=== PATIENT | male | born 1960 | race African-American/Black ===

== ENCOUNTER 2019-07-10 05:30 | Inpatient (IN) | payer BC ==
[2019-07-05 13:49] LABS: HEMATOCRIT 42.8 % (42.0-52.0); HEMOGLOBIN 14.2 gm/dL (14.0-18.0); MCH 29.2 pg (26.0-34.0); MCHC 33.1 g/dL (28.0-37.0); MCV 88.2 fL (80.0-100.0); RBC 4.86 mil/uL (4.50-6.00); RDW 15.2 % (10.5-14.5); WBC 5.5 thou/uL (4.0-11.0)
[2019-07-05 13:51] LABS: URINE BILIRUBIN NEGATIVE (Negative); URINE BLOOD TRACE (Negative); URINE CLARITY CLEAR; URINE COLOR YELLOW; URINE GLUCOSE-RANDOM* NEGATIVE (Negative); URINE KETONES NEGATIVE (Negative); URINE LEUKOCYTES-REFLEX NEGATIVE (Negative); URINE NITRITE-REFLEX NEGATIVE (Negative); URINE PROTEIN (DIPSTICK) NEGATIVE (Negative); URINE SPECIFIC GRAVITY 1.015 (1.005-1.035); URINE UROBILINOGEN 0.2 E.U./dl (0.2-1.0)
[2019-07-05 13:58] LABS: ALBUMIN 3.4 g/dL (3.4-5.0); CALCIUM 9.4 mg/dL (8.5-10.1); CREATININE 1.1 mg/dL (0.7-1.3); POTASSIUM 4.1 mmol/L (3.5-5.1)
[2019-07-05 14:02] LABS: PROTIME 10.2 Seconds (9.3-11.4)
[~2019-07-10] VITALS: Ht 177.8 cm; Wt 128.8 kg
[~2019-07-10 05:30] MED LIST: COCONUT OIL1000 MG PO; COZAAR 25 MG TA25 M2 PO; GRAPE SEED50 MG PO; HYDROCHLOROTH12.5 M1 PO; MOBIC15 MG PO
[2019-07-10 14:00] VITALS: BP 148/84
[2019-07-10 15:00] VITALS: BP 172/95
[2019-07-10 15:30] VITALS: BP 178/103
[2019-07-10 16:00] VITALS: BP 181/100
--- NOTE | 2019-07-10 18:59 | NUR ---
RECEIVED PT APPROX 1400. A/O. C/O PAIN MANAGED BY MEDS ORDERED. NO NOTED SOA. DENIES NV. KAYLYNN DRESSING CDI. BP ELVATED- HYRADALAZINE GIVEN ORDERED. HEMOVAC INTACT NOTED SANGUINOUS DRAIN- 525. PAGED DR. REID- WAITING FOR CALL BACK. WILL CONT. TO MONITOR.
[2019-07-10 19:37] VITALS: BP 133/75
[2019-07-11 04:25] VITALS: BP 143/67
--- NOTE | 2019-07-11 04:44 | NUR ---
R KNEE WITH HEMOVAC PATENT. BLOODY OUTPUT, REDUCING. PAIN CONTROLLED BY ORAL MEDS, AFEBRILE.USES URINAL. IVF INFUSING.ICE KIMI APPLIED TO R KNEE. TEDS IN PLACE.NO FURTHER COMPLAINS.
[2019-07-11 06:07] LABS: HEMATOCRIT 32.7 % (42.0-52.0); HEMOGLOBIN 10.8 gm/dL (14.0-18.0); MCH 29.5 pg (26.0-34.0); MCHC 33.1 g/dL (28.0-37.0); RBC 3.67 mil/uL (4.50-6.00); WBC 10.4 thou/uL (4.0-11.0)
--- NOTE | 2019-07-11 06:27 | NUR ---
PT WITH SHAJI DRAINS TO BOTH BREASTS PATENT. SEROSANGUNOUS DRAINAGE NOTED. PT UP WITH ASSIT X 2 TO SIT UP INORDER TO GO TO BATHROOM. VOIDING OKAY. DENIES PAIN AT REST-NO PAIN MEDS GIVEN THIS SHIFT SO FAR. LOW GRADE FEVER.CALLLS APPROPRIATELY.
[2019-07-11 07:11] VITALS: BP 120/67
--- NOTE | 2019-07-11 07:45 | O ---
[facility] [place] [address] OPERATIVE REPORT Name: CLAUDIA VARGHESE Room #: 426-P ADM IN M.R.#: [id number] Admission: 07/10/19 Attend Phys: Surya Patrick MD Discharge: Date of : 58 Report #: [id number] THIS REPORT FOR: //name// CC: Surya Patrick FAM unknown NOREEN STRAUSS DATE OF SERVICE: 07/10/2019 PREOPERATIVE DIAGNOSIS: Posttraumatic and degenerative osteoarthritis, right knee. POSTOPERATIVE DIAGNOSIS: Posttraumatic and degenerative osteoarthritis, right knee. PROCEDURE: Right total knee arthroplasty. SURGEON: Surya Patrick MD. INDICATIONS: This 59-year-old healthy gentleman injured the right knee many years ago and underwent a large arthrotomy surgical procedure. Subsequently, he has developed rather significant posttraumatic degenerative arthritis. He has varus malalignment and a mild flexion contracture and rather marked degenerative change in all 3 compartments with significant loose bodies and bony spurring. He has tried conservative measures without much benefit and has decided to go ahead with total knee arthroplasty. DESCRIPTION OF PROCEDURE: The patient was taken to the operating room where he was placed under general anesthesia. A femoral nerve block was also applied. The right knee and leg were meticulously prepped and draped and a thigh tourniquet inflated to 300 mmHg. An anterior longitudinal skin incision was made. His previous scar was far more medial and probably 40 years old and so I did not feel we could utilize that older scar for this incision. The dissection was carried sharply through fascia and the patella reflected laterally. Marked degenerative change in all 3 compartments was noted. The Silva and Nephew knee system was utilized. Intramedullary guides were used on both the femur and the tibia. The femur seemed best suited for a size 6 right femoral component. The tibia was cut perpendicular to the long axis of the bone and a size 5 Alessia tibial baseplate was applied. This seemed to fit nicely. A trial reduction was performed and a 9 mm polyethylene insert resulted in satisfactory alignment, range of motion and stability. The bony cuts had been appropriate to correct the moderate varus malalignment and the preoperative flexion contracture. The knee seemed to be in good alignment with full knee extension and flexion beyond 135 degrees and with satisfactory stability on varus and valgus stress. The patellar surface was resected and a 35 mm patellar button fit appropriately. Appropriate anchor holes were created. [address] [address] OPERATIVE REPORT Name: CLAUDIA VARGHESE Room #: 426-P [facility] IN ..#: [id number] Admission: 07/10/19 Attend Phys: Surya Patrick MD Discharge: Date of : 58 Report #: [id number] The trial components were removed. The intramedullary canal was blocked with a bone block on both the femoral and tibial sides. The surfaces were thoroughly irrigated and dried. Methyl methacrylate cement was mixed and injected into the porous surface of the tibia. The Silva and Nephew size 5 Alessia II tibial base plate was then applied. This was impacted into position and excess cement was removed from around its margin. It seated nicely and appeared to be secure. A 9 mm polyethylene insert was applied using the Legion cruciate retaining high flexion insert. This was snapped into position and it seated nicely and appeared to be secure. A size 6 right cruciate retaining Legion femoral component was inserted on the distal femur. It was impacted into position and seated nicely and appeared to be secure. A size 35 mm Alessia II patellar resurfacing button was applied with appropriate anchor holes and cement. It also seated nicely and appeared to be secure. This was held with a patellar clamp until the cement fully hardened. Once the cement was fully firm, once again arrange alignment, range of motion and stability were assessed and felt to be satisfactory. The patellar tracks nicely and appears to be stable. The tourniquet was then deflated after a total tourniquet time of 60 minutes. Good hemostasis was confirmed. The wound was copiously irrigated. A single Hemovac was left in the wound exiting through a separate stab incision. The fascia was closed with multiple #1 Vicryl sutures. The subcutaneous tissues were closed with 0 Monocryl. The skin was closed with skin jeri. A sterile dressing was applied. The patient was then awakened and returned to recovery room in good condition. <ELECTRONICALLY SIGNED> By: Surya Patrick MD 07/11/19 0745 [id number] Surya Patrick MD /nt
--- NOTE | 2019-07-11 15:32 | NUR ---
PT A&OX4, IV INTACT IN L HAND INTACT. UP WITH PT AND WALKER TODAY. KAYLYNN DRSG INTACT COVERED WITH TIP WRAP. PT TOLERATING PO PAIN MED WELL THOUGH NEEDED EXTRA PRN PAIN COVERAGE AFTER SECOND PT THERAPY TODAY. WILL CONT POC.
--- NOTE | 2019-07-11 17:46 | NUR ---
PT ADMITTED RELATED TO RT TOTAL KNEE REPLACEMENT. CM REVIEWED CHART AND SPOKE WITH CARE TEAM. CM MET WITH PT AT BEDSIDE THIS DAY. PT IS A&O X4. CM ROLE INTRODUCED. PT INDICATED HE LIVES IN A HOUSE ALONE WITH 3 STEPS TO ENTER WITH BL HR AND 5 TO BEDROOM. PT INDICATED HE NEEDS A FWW FOR DC. CM TO ORDER IT. PT HAD INDICATED HE IS SET UP WITH OP PT AT [facility] 07/18. CM TO FOLLOW INDICATED WITH DC PLANNING.
[2019-07-11 20:15] VITALS: BP 195/90
[2019-07-11 20:55] VITALS: BP 195/96
[2019-07-12] VITALS: BP 153/99
[2019-07-12 04:00] VITALS: BP 170/95
[2019-07-12 04:10] VITALS: BP 170/95
--- NOTE | 2019-07-12 04:25 | NUR ---
ASSUMED PT CARE AROUND 1900. A&OX4. PT SAT UP IN CHAIR AT BEGINNING OF SHIFT. C/O RIGHT KNEE PAIN. ICE PACKS APPLIED TO RT KNEE. PAIN MEDICATION GIVEN. PT WAS TRANSFERED BACK TO BED AND PAIN HAS SINCE IMPROVED SINCE HAVING MULTIPLE DOSES OF PAIN MEDICATION. PT SLEPT MOST OF THE NIGHT. RESP EVEN AND UNLABORED. BP ELEVATED. PRN HYDRALIZINE GIVEN WITH SOME IMPROVEMENT IN BP. VOIDING INDEPENDENTLY PER URINAL. FALL PRECAUTIONS IN PLACE. PROGRESSING SLOWLY TOWARD POC GOALS. WILL CONTINUE TO MONITOR FURTHER.
[2019-07-12 05:54] LABS: HEMATOCRIT 34.3 % (42.0-52.0); HEMOGLOBIN 11.2 gm/dL (14.0-18.0); MCHC 32.7 g/dL (28.0-37.0); MCV 88.5 fL (80.0-100.0); RBC 3.87 mil/uL (4.50-6.00); RDW 14.6 % (10.5-14.5); WBC 11.8 thou/uL (4.0-11.0)
[2019-07-12 07:43] VITALS: BP 179/80
[2019-07-12 16:00] VITALS: BP 139/71
[2019-07-12 21:35] VITALS: BP 135/79
--- NOTE | 2019-07-13 03:55 | NUR ---
PATIENT ASSESSED AND IS ALERT X 4. SKIN WARM AND DRY. RESP EVEN AND UNLABORED. HAD RIGHT KNEE REPLACED . UP WITH WALKER AMBULATING WELL WITH 1 ASSIST. KAYLYNN DRESSING DRY AND INTACT. LUNGS CTA-DISM. ABDOMEN SOFT WITH + BS. SCD'S ON LEFT LEG. VS STABLE. ON ROOM AIR. LEFT HAND SL FLUSHES WELL. NO STOOL TODAY. WILL MONITOR FOR PAIN CONTROL. TAKING DIET WELL. CONT PLAN OF CARE.
--- NOTE | 2019-07-13 04:12 | NUR ---
PATIENT ASSESSED AND IS HAVING PAIN IN LEFT KNEE PAIN MEDICATION GIVEN AND HE WANTED A TIP WRAP ON LEFT KNEE.
[2019-07-13 04:30] VITALS: BP 144/71
[2019-07-13 04:58] LABS: HEMATOCRIT 33.9 % (42.0-52.0); HEMOGLOBIN 11.1 gm/dL (14.0-18.0); MCH 28.9 pg (26.0-34.0); MCHC 32.7 g/dL (28.0-37.0); MCV 88.5 fL (80.0-100.0); RBC 3.83 mil/uL (4.50-6.00); RDW 15.1 % (10.5-14.5)
[2019-07-13 07:11] VITALS: BP 154/91
--- NOTE | 2019-07-13 14:40 | NUR ---
CASE DISCUSSED WITH [facility] TODAY AND WAS INFORMED THAT PT WILL NEED POST-ACUTE CARE. S/W PT AND OFFERED NETWORK FACILITIES WITHIN HIS INS AND HE IS INTERESTED IN [facility], [facility] WHICH ARE BOTH VERY CLOSE TO HIS HOME. ASKED DC [employer] TO FAX REFERRALS TO BOTH FACILITIES & PT IS READY FOR DC ONCE AUTH HAS BEEN OBTAINED.
--- NOTE | 2019-07-13 15:00 | NUR ---
FAXED REFERRAL TO [facility] SPOKE WITH HAI IN ADM SHE RECEIVED REFERRAL AND WILL NOT HAVE BED AVAILABLE TIL WEDNESDAY AND THEY HAVE A WTG LIST. FAXED REFERRAL TO [facility] SPOKE WITH ANGEL LUIS IN ADM SHE RECEIVED REFERRAL AND CAN ACCEPT PT CLINICALLY AND WILL SUBMIT FOR AUTH. DCP TO FOLLOW.
[2019-07-13 16:09] VITALS: BP 133/76
[2019-07-13 19:25] VITALS: BP 138/81
[2019-07-14 03:59] VITALS: BP 151/96
--- NOTE | 2019-07-14 04:03 | NUR ---
ASSUMED CARE OF PT @1900 PT ASSESSD AT START OF SHIFT SITTING UP IN CHAIR. KAYLYNN DRESSING ON RT KNEE INTACT. PAIN MEDS GIVEN AND PT TRANSFERRED TO BED FOR THE NIGHT. ICE PACK ON RT KNEE AND URINAL AT BEDSIDE. POC DONE AND WILL CONTINUE TO MONITOR TILL EOS.
--- NOTE | 2019-07-14 11:57 | NUR ---
FAXED OT EVAL THIS AM TO [facility]. AWAITING AUTHORIZATION. CHART COPY REQUESTED. CASE DISCUSSED WITH DR ARROYO.
--- NOTE | 2019-07-14 14:11 | NUR ---
ASSUMED CARE OF PT AT 0700. ASSESSMENT CHARTED. A&O,X4. C/O RIGHT KNEE PAIN POSTOP, KAYLYNN DRESSIG C/D/I. TIP WRAP ON LEFT KNEE FOR SUPPORT. PO PAIN MEDS GIVEN ORDERED. UP WITH X1 ASSIST AND WALKER. C/O NO BM, DR. ARROYO NOTIFIED. NEW MAG CITRATE ORDERS, PT CONSUMED 100%, PASSING GAS, REPORTS GURGLING. WILL CONTINUE TO MONITOR. PLAN TO D/C TO FACILITY TODAY, WAITING FOR AUTHORIZATION.
--- NOTE | 2019-07-14 16:36 | NUR ---
RECEIVED AUTHORIZATION FROM THIS AFTERNOON. CHART COPY DONE. ORDERS FAXED. PT NOTIFIED HIS FAMILY. [facility] FOR 1800 TODAY TO TRANSPORT PT TO [facility]. ARRANGED WITH ANGEL LUIS
[2019-07-14 17:55] VITALS: BP 132/74
--- NOTE | 2019-07-15 11:19 | D ---
[facility] [place] [address] DISCHARGE SUMMARY Name: CLAUDIA VARGHESE Room #: 426-P [facility] IN ..#: [id number] Admission: 07/10/19 Attend Phys: Surya Patrick MD Discharge: 07/14/19 Date of : 58 Report #: [id number] THIS REPORT FOR: //name// CC: Surya Patrick FAM unknown NOREEN STRAUSS DATE OF SERVICE: 07/14/2019 FINAL DIAGNOSIS: End-stage posttraumatic and degenerative osteoarthritis, right knee. OPERATIONS AND PROCEDURES: Right total knee arthroplasty. HISTORY: This 59-year-old gentleman injured the right knee many years ago and underwent a surgical procedure. Subsequently, he has had gradually progressive posttraumatic degenerative arthritis. He now has severe pain and limited range of motion with marked degenerative changes noted. He has elected to go ahead with right total knee arthroplasty. HOSPITAL COURSE: The patient was admitted and taken to the operating room on 07/10. He underwent right total knee arthroplasty, which he tolerated well. Postoperatively, his course was largely unremarkable, although he did have rather significant pain and required significant pain medication and made rather slow progress with therapy. He was able to advance with a regular diet. He was able to advance from IV analgesics to oral analgesics. His antihypertensive medications were initially held, but now his blood pressure seems stable and he is back on his routine medications. He has made progress with therapy and is ambulating with a walker and some assistance, but is not yet achieved safe and independent ambulation and he has not yet been on steps. He notes that he lives alone in his own home, which does have steps and therefore feels he is not really safe and independent to return to his own home at this point. Consequently, we made arrangements for an extended care facility where he can receive ongoing assistance and therapy until he can become more safe and functionally independent to return home with some family assistance. DISCHARGE MEDICATIONS: Include losartan 100 mg daily, hydrochlorothiazide 12.5 mg daily, Xarelto 10 mg daily, hydrocodone 10 mg every 6-8 hours p.r.n. for pain. He will continue a regular diet. He may continue with an aggressive therapy program for range of motion and strengthening involving his right total knee arthroplasty. I have asked the patient or family or the extended care facility to call me if there are any problems or questions. I will plan to see him back in my office in 1 week for followup and new x-ray and then in 2 weeks for followup and suture removal. I am hoping that he can be discharged from the [address] [address] DISCHARGE SUMMARY Name: CLAUDIA VARGHESE Room #: 426-P [facility] IN ..#: [id number] Admission: 07/10/19 Attend Phys: Surya Patrick MD Discharge: 07/14/19 Date of : 58 Report #: [id number] extended care facility sometime in the next 4-7 days whenever he reaches a safe independent level of activity. <ELECTRONICALLY SIGNED> By: Surya Patrick MD 07/15/19 1119 1254 [id number] Surya Patrick MD /nt
== END 2019-07-14 18:25 | DRG 470 ==
LOC: PRE 05:30 → TBA 07:16 → 4E 07:16 → PRE 13:17 → 4E 13:33 → PRE 14:00 → 4E 07-14 18:25
PROVIDERS: ADMIT Orthopaedic Surgery
PROC: 3E0T3BZ Introduction of Anesthetic Agent into Peripheral Nerves and Plexi, Percutaneous Approach (ICD-10-PCS; principal; 2019-07-10)
PROC: 0SRC0J9 Replacement of Right Knee Joint with Synthetic Substitute, Cemented, Open Approach (ICD-10-PCS; principal; 2019-07-10)
DX: M17.31 Unilateral post-traumatic osteoarthritis, right knee (principal); Z68.41 Body mass index [BMI] 40.0-44.9, adult; I10 Essential (primary) hypertension; E66.01 Morbid (severe) obesity due to excess calories; Z88.8 Allergy status to other drugs, medicaments and biological substances; Z79.899 Other long term (current) drug therapy
CPT/HCPCS: 10783; 50010; 50101; 50411; 50954; 51130; 51225; 51412; 53364; 56525; 57095; 57104; 57180; 62110; 62900; 64039; 70005

== ENCOUNTER → 2021-12-01 | Outpatient (CLI) | payer BC ==
[~2021-12-01] MED LIST changes: +LOSARTAN POTAS100 MG PO; +TOPROL XL25 MG PO; +TURMERIC500 M2 PO
[2021-12-01 13:12] LABS: HEMATOCRIT 46.1 % (42.0-52.0); HEMOGLOBIN 14.7 gm/dL (14.0-18.0); MCH 29.1 pg (26.0-34.0); RBC 5.06 mil/uL (4.50-6.00); RDW 14.8 % (10.5-14.5); WBC 6.4 thou/uL (4.0-11.0)
[2021-12-01 13:17] LABS: URINE BILIRUBIN NEGATIVE (Negative); URINE BLOOD 1+ (Negative); URINE CLARITY CLEAR; URINE COLOR YELLOW; URINE GLUCOSE-RANDOM* NEGATIVE (Negative); URINE KETONES NEGATIVE (Negative); URINE LEUKOCYTES-REFLEX NEGATIVE (Negative); URINE NITRITE-REFLEX NEGATIVE (Negative); URINE PROTEIN (DIPSTICK) NEGATIVE (Negative); URINE SPECIFIC GRAVITY >= 1.030 (1.005-1.035); URINE UROBILINOGEN 0.2 E.U./dl (0.2-1.0)
[2021-12-01 13:28] LABS: ALBUMIN 3.6 g/dL (3.4-5.0); CALCIUM 9.2 mg/dL (8.5-10.1); CREATININE 1.3 mg/dL (0.7-1.3); POTASSIUM 3.9 mmol/L (3.5-5.1)
[2021-12-01 13:30] LABS: INR 0.94; PROTIME 10.3 Seconds (10.5-12.1)
[2021-12-01 13:50] LABS: SQUAMOUS 4-10 Moderate /LPF (0-3)
[2021-12-01 13:51] LABS: BACTERIA-REFLEX 1-9 Few /HPF (None Seen); CASTS None Seen /LPF (None Seen); CRYSTALS None Seen /LPF (None Seen); MUCUS 4-6 Moderate strn/LPF (None Seen); URINE RBC 3-10 Few /HPF (NONE SEEN); URINE WBC-REFLEX 0-5 Rare /HPF (0-5)
--- NOTE | 2021-12-02 07:33 | EKG ---
[place] [address] [facility] [place] [address] ELECTROCARDIOGRAM REPORT Name: CLAUDIA VARGHESE [place] Room #: NEREIDA Cherry#: [id number] Admission: 12/01/21 Attend Phys: Suzie Love DO Discharge: Date of : 58 Report #: [id number] [facility] Test Date: 2021-12-01 Test Time: 13:03:13 Pat Name: CLAUDIA VARGHESE Department: Room: Gender: Precinct Commanding Officer: GOGO VENTURA : 1960 Requested By: Surya Patrick Order Number: [id number] MD: Babak Beckett Measurements Intervals [place] Rate: 59 P: 38 OK: 202 QRS: -26 QRSD: 112 T: 31 QT: 431 QTc: 427 Interpretive Statements Sinus bradycardia Otherwise no significant abnormality No previous ECG available for comparison Electronically Signed On 12-02-2021 7:33:02 BUSINESS OFFICE MANAGER by Babak Beckett [email or web address] <ELECTRONICALLY SIGNED> By: Babak Beckett MD, [facility] 12/02/21 0733 1303 1303 Babak Beckett MD, FACC /EPI
== END | disposition home or self-care (01) ==
LOC: PAC 10:03
PROVIDERS: Orthopaedic Surgery; ATTEND Student in an Organized Health Care Education/Training Program
DX: Z01.818 Encounter for other preprocedural examination (principal); R00.1 Bradycardia, unspecified

== ENCOUNTER → 2021-12-15 | Outpatient (CLI) | payer BC | LOC: LAB 10:52 | PROVIDERS: ATTEND Student in an Organized Health Care Education/Training Program | DX: Z01.812 Encounter for preprocedural laboratory examination (principal); Z20.822 Contact with and (suspected) exposure to COVID-19 ==

== ENCOUNTER 2021-12-18 06:11 | Observation (INO) | payer BC ==
[~2021-12-18] VITALS: Ht 180.3 cm; Wt 131.5 kg
[2021-12-18 06:55] VITALS: BP 116/73
--- NOTE | 2021-12-18 11:19 | O ---
[facility] [place] [address] OPERATIVE REPORT Name: CLAUDIA VARGHESE Room #: [facility]#: [id number] Admission: 12/18/21 Attend Phys: Surya Patrick MD Discharge: Date of : 58 Report #: [id number] THIS REPORT FOR: cc: NOREEN STRAUSS - Family physician unknown Surya Patrick MD ~ DATE OF SERVICE: 12/18/2021 PREOPERATIVE DIAGNOSIS: End-stage degenerative arthritis, left knee. POSTOPERATIVE DIAGNOSIS: End-stage degenerative arthritis, left knee. PROCEDURE: Left total knee arthroplasty. SURGEON: Surya Patrick MD INDICATIONS: This stalky, but otherwise well appearing 61-year-old gentleman has rather severe degenerative arthritis involving both knees. He underwent right total knee replacement several years ago, with good result. He returns now with severe progressive left knee pain and varus malalignment, with limited range of motion. He has elected to go ahead with total knee arthroplasty. DESCRIPTION OF PROCEDURE: The patient was taken to the operating room where he was placed under general anesthesia. A femoral nerve block was also applied. Prophylactic intravenous antibiotics were administered. The left knee and leg were meticulously prepped and draped and a thigh tourniquet inflated to 350 mmHg. An anterior longitudinal skin incision was made and carried through the medial retinaculum. The patella was reflected laterally. Marked degenerative change in all 3 compartments was noted. There were several large loose bodies, which were removed. The Silva and Nephew knee system was utilized. Intramedullary guides were used on both the femur and the tibia. The femur was cut in 5 degrees of valgus and the tibia cut perpendicular to the long axis of the bone, which corrected the moderate varus malalignment. A size 6 femoral component fit nicely. A size 5 tibial component also fit nicely. The patella surface was resected and a 35 mm patellar button fit nicely. Appropriate anchor holes were created. Trial reduction was performed and the knee seemed best suited for a 9 mm polyethylene insert. This allowed the knee to extend fully and flex beyond 140 degrees. The patella seemed to track nicely and appeared to be stable. The trial components were removed. The bony surfaces were thoroughly irrigated and dried. The intramedullary canal was blocked with a bone block on both the femoral and tibial sides. Methyl methacrylate cement was mixed and injected into the porous surface of the proximal tibia. The Silva and Nephew size 5 left Alessia II tibial nonporous baseplate was selected. This was impacted into position in appropriate rotation. It seated nicely and appeared to be secure. [address] [address] OPERATIVE REPORT Name: CLAUDIA VARGHESE Room #: [facility].#: [id number] Admission: 12/18/21 Attend Phys: Surya Patrick MD Discharge: Date of : 58 Report #: [id number] Excess cement was removed around its margin. A size 9 mm Legion cruciate-retaining high flexion polyethylene insert was inserted and snapped into place. It seated nicely and appeared to be secure. A left size 6 cruciate-retaining Legion porous femoral component was impacted on the distal femur. It seated nicely and appeared to be secure. A 35 mm Legion II Patellar component was inserted using appropriate anchor holes and cement. It was secured with a patellar clamp while the cement hardened. Once the cement was firm, range of motion, alignment and stability were assessed and once again felt to be satisfactory. The tourniquet was deflated after a total tourniquet time of 65 minutes. Good hemostasis was confirmed. A single Hemovac was left in the wound exiting through a separate stab incision. The fascia was closed with multiple #1 Vicryl sutures. The subcutaneous tissues were closed with 0 Monocryl. The skin was closed with skin jeri. A sterile dressing was applied. The patient was awakened and returned to recovery room in good condition. <ELECTRONICALLY SIGNED> By: Surya Patrick MD 12/18/21 1119 [id number] [id number] Surya Patrick MD /nt
--- NOTE | 2021-12-18 17:11 | NUR ---
Consult rec'd for snf referral to [facility] with dc anticipated 12/20. Pt is postop today s/p tkr. Herb Digger confirmed with the pt and he indicates he spoke with Ritu in admissions at the SNF and she is aware of the referral and today's surgery. Referral faxed to Ritu in admissions and message left on her cell number to confirm they can accept on Wednesday. PT/OT evals are pending and will need to be faxed tomorrow.
--- NOTE | 2021-12-18 17:12 | NUR ---
PT ARRIVE FROM PACU ALERT AND ORIENTED, DENIES PAIN. LEFT LEG WITH KAYLYNN DRESSING, ROSMERY AND TIP WRAP CLEAN, DRY AND INTACT. POLAR IN PLACE WELL. PT WITH FAMILY AT BEDSIDE AND IN GOOD SPIRITS. 1/2 NS RUNNING AT 100ML/HR THRU RIGHT 20G. WILL CONTINUE TO MONITOR AND FOLLOW POC
[2021-12-18 19:46] VITALS: BP 146/73
--- NOTE | 2021-12-19 04:16 | NUR ---
ASSUMED PT CARE AT 1900.PT C/O PAIN TO HIS L KNEE KNEE,MANAGED WITH MED.PT'S KAYLYNN DRESSING FLASHING ORANGE LIGHT,DRESSING NOTED TO BE SATURATED WITH BLOOD.CALL PLACED TO THE DR REID,GOT A CALL BACK FROM DR HECK,NO ORDER NOTED.PT COMPLAINED THAT HIS SDRESSING WAS TOO TIGHT AND WAS BURNING,PT LOOSED THE TIP WRAP AND STATED THAT HE FELT BETTER.PT WAS ABLE TO GET U FROM HIS BED AND DANGLE HIS FEET AT THE FOOT OF THE BED.URAINAL AT BEDSIDE WITH ADEQUATE OUTPUT.HEMOVAC IN PLACE,SEROUS SANQUINEOUS DRAINAGE NOTED.PT ABLE TO MAKE HIS NEEDS KNOW.CALL LIGHT WITHIN REACH.
[2021-12-19 06:52] LABS: CALCIUM 8.2 mg/dL (8.5-10.1); CREATININE 1.6 mg/dL (0.7-1.3); POTASSIUM 3.7 mmol/L (3.5-5.1)
[2021-12-19 07:15] VITALS: BP 136/76
[2021-12-19 08:54] LABS: ABSOLUTE NEUTROPHILS 7.1 thou/uL (1.4-8.2); BASOPHILS 0.3 % (0.0-2.0); HEMATOCRIT 34.2 % (42.0-52.0); HEMOGLOBIN 10.8 gm/dL (14.0-18.0); LYMPHOCYTES 14.4 % (24.0-44.0); MCH 28.9 pg (26.0-34.0); MCHC 31.7 g/dL (28.0-37.0); MCV 91.2 fL (80.0-100.0); MONOCYTES 15.6 % (1.0-8.0); PLATELET COUNT 222 thou/uL (150-400); POLYS 69.7 % (36.0-66.0); RBC 3.75 mil/uL (4.50-6.00); RDW 14.5 % (10.5-14.5); WBC 10.2 thou/uL (4.0-11.0)
[2021-12-19 08:55] LABS: MAGNESIUM 1.8 mg/dL (1.8-2.4)
--- NOTE | 2021-12-19 11:38 | NUR ---
Pt alert and oriented this shift. pain managed with current regimen. KAYLYNN dressing changed d/t saturation, dr mccain aware. hemovac removed with no complication. pt out of bed with PT, c/o pain but tolerating well. will continue to monitor and follow poc.
--- NOTE | 2021-12-19 12:23 | NUR ---
PT/OT susanna faxed to Ritu in admissions at [facility]. She has a bed tomorrow but will submit for ins auth to his commercial [employer] plans as they do not have a snf waiver in place. They will need a covid test from today. Unit cm to advise unit rn.
[2021-12-19 15:23] VITALS: BP 145/80
[2021-12-19 20:47] VITALS: BP 151/97
--- NOTE | 2021-12-20 02:50 | NUR ---
ASSUMED CARE OF PT AT 1900 BEDSIDE REPORT RECIEVED BHARATHI ASSESSMENT COMPLETE. PT C/O L KNEE PAIN. KAYLYNN DRSG CDI SECURED IN GOWN POCKET. POLAR PACK REFILLED. MIRNA HARRIS ON. MEDS GIVEN EPR JAN, PAIN MEDS GIVEN ACCORDINLY. R PIV CDI, PATENT. ALL NEEDS MET, HOURLY ROUNDING CONTINUING. CALL LIGHT IN REACH
[2021-12-20 05:52] LABS: ABSOLUTE NEUTROPHILS 11.5 thou/uL (1.4-8.2); BASOPHILS 0.5 % (0.0-2.0); HEMATOCRIT 31.8 % (42.0-52.0); HEMOGLOBIN 10.2 gm/dL (14.0-18.0); LYMPHOCYTES 10.4 % (24.0-44.0); MCHC 32.2 g/dL (28.0-37.0); MCV 90.1 fL (80.0-100.0); PLATELET COUNT 211 thou/uL (150-400); POLYS 77.1 % (36.0-66.0); RBC 3.53 mil/uL (4.50-6.00); RDW 14.6 % (10.5-14.5); WBC 14.9 thou/uL (4.0-11.0)
[2021-12-20 06:03] LABS: CALCIUM 8.9 mg/dL (8.5-10.1); CREATININE 1.3 mg/dL (0.7-1.3); MAGNESIUM 1.9 mg/dL (1.8-2.4); POTASSIUM 3.9 mmol/L (3.5-5.1)
[2021-12-20 07:33] VITALS: BP 144/92
[2021-12-20 08:29] VITALS: BP 144/92
--- NOTE | 2021-12-20 10:22 | NUR ---
ASSUMED CARE OF PT AT 0700. GIVEN PAIN MEDICATION, PT RESTING COMFORTABLY OTHERWISE. ALL VITAL SIGNS WNL. PT DISCHARGING TO FACILITY TODAY.
--- NOTE | 2021-12-20 11:44 | NUR ---
SPOKE WITH DR REID OVER PHONE. VERBAL ORDER FOR DISCHARGE GIVEN. SCRIPTS SENT TO PHARMACY. PT GOING TO A SKILLED REHAB FACILITY - [facility] ATTENDANT TIME IS AT 1300
== END 2021-12-20 16:20 ==
LOC: OR → EDSTATUS 08:57 → OR 09:06 → 4S 15:07 → OR 18:18 → 4S 18:21
PROVIDERS: Nurse Practitioner; ADMIT Orthopaedic Surgery; ATTEND Orthopaedic Surgery
DX: M17.12 Unilateral primary osteoarthritis, left knee (principal); Z20.822 Contact with and (suspected) exposure to COVID-19; M17.11 Unilateral primary osteoarthritis, right knee; I10 Essential (primary) hypertension; Z96.651 Presence of right artificial knee joint; Z79.899 Other long term (current) drug therapy
CPT/HCPCS: 50010; 50101; 50415; 50954; 51130; 51225; 51412; 56525; 57095; 57103; 57104; 57180; 58239; 59024; 62110; 62900; 64039; 70005